=== PATIENT | female | born 1990 | race Caucasian/White ===

== ENCOUNTER 2019-05-11 12:36 | Emergency (ER) | payer MEDICAID ==
[~2019-05-11] VITALS: Ht 142.2 cm; Wt 53.1 kg
[~2019-05-11 12:36] MED LIST: PREN-385 PO
[2019-05-11 12:39] VITALS: BP 115/71
--- NOTE | 2019-05-11 12:44 | NUR ---
PT TAKEN TO ER BED 03
--- NOTE | 2019-05-11 12:50 | NUR ---
28 Y/O FEMALE PRESENTING WITH C/C OF XIPHOID PAIN 4/10 RADIATING TO THE BILAT BACK FLANK AREA 8/10 PRESSURE SENSATION. PER PT HX OF GALLBLADDER STONES IN 2007, NO HX OF SX. PT REPORTS BURNING SENSATION WHEN URINATING WITH URINE BEING DARK YELLOW. PER PT NKA. MEDICAL HX OF HYPERTHOYRIDISM, DOES NOT TAKE MEDICATIONS DUE TO MEDICAL COVERAGE. CARRIE LAST NIGHT TOLERATED WELL WITH SLIGHT NAUSEA. PER PT REPORTS SIMILAR SYMPTOMS OF GALLBLADDER STONES. SIDE RAIL X1.
--- NOTE | 2019-05-11 13:26 | NUR ---
Patient being evaluated by DR WONG at bedside.
--- NOTE | 2019-05-11 14:05 | NUR ---
ULTRASOUND AT BEDSIDE
[2019-05-11 14:27] LABS: BASOPHILS # (AUTO) 0.1 K/uL (0.00-0.22); BASOPHILS % (AUTO) 0.4 % (0.0-2.0); EOSINOPHILS % (AUTO) 0.2 % (0.0-4.0); HEMATOCRIT 36.8 % (36-48); HEMOGLOBIN 12.1 g/dL (12.0-16.0); LYMPHOCYTES % (AUTO) 7.4 % (20.5-51.1); MEAN CORPUSCULAR HEMOGLOBIN 29 pg (27-31); MEAN CORPUSCULAR HGB CONC 33 g/dL (33-37); MONOCYTES # (AUTO) 0.9 K/uL (0.8-1.0); MONOCYTES % (AUTO) 6.7 % (1.7-9.3); NEUTROPHILS # (AUTO) 11.8 K/uL (1.8-7.7); NEUTROPHILS % (AUTO) 85.3 % (42.2-75.2); PLATELET COUNT (AUTO) 212 K/uL (140-450); RED BLOOD CELL COUNT(AUTO) 4.14 MIL/uL (4.20-5.40); RED CELL DISTRIBUTION WIDTH 14.6 % (11.6-13.7); WHITE BLOOD COUNT (AUTO) 13.8 K/uL (4.8-10.8)
[2019-05-11 14:54] LABS: ANION GAP 14.4 (8-16); CARBON DIOXIDE 24.3 mmol/L (21-32); CREATININE 0.7 mg/dL (0.6-1.3); POTASSIUM 3.7 mmol/L (3.5-5.1)
[2019-05-11 14:59] LABS: ALBUMIN 3.7 g/dL (3.4-5.0); TOTAL BILIRUBIN 0.6 mg/dL (0.0-1.0)
--- NOTE | 2019-05-11 16:23 | NUR ---
PT ROUNDING ; PT SLEEPING
[2019-05-11 17:02] LABS: APPEARANCE,URINE HAZY (CLEAR); BILIRUBIN,URINE NEGATIVE (NEGATIVE); BLOOD, URINE 1+ (NEGATIVE); COLOR,URINE YELLOW (YELLOW); LEUKOCYTE ESTERASE ,URINE 1+ (NEGATIVE); NITRITE, URINE POSITIVE (NEGATIVE); PH,URINE 7.5 (5.0-9.0); UGLUCOSE NEGATIVE (NEGATIVE)
[2019-05-11] MEDS ORDERED: cefTRIAXone 1,000 MG VIAL ONE (17:29)
[2019-05-11 17:52] LABS: WBC,URINE >25 (MANY) /HPF (0-5)
[2019-05-11 18:10] VITALS: BP 118/68
--- NOTE | 2019-05-11 18:10 | NUR ---
Patient discharged with v/s stable. Written and verbal after care instructions given and explained. Patient alert, oriented and verbalized understanding of instructions. Ambulatory with steady gait. All questions addressed prior to discharge. ID band removed. Patient advised to follow up with PMD. Rx of ZOFRAN AND KEFLEX given. Patient educated on indication of medication including possible reaction and side effects. Opportunity to ask questions provided and answered.
== END 2019-05-11 18:10 | disposition home or self-care (01) ==
LOC: MED 12:36
DX: N39.0 Urinary tract infection, site not specified (principal); E05.90 Thyrotoxicosis, unspecified without thyrotoxic crisis or storm; Z79.899 Other long term (current) drug therapy
CPT/HCPCS: 36415; 76705; 80053; 81001; 81025; 83690; 85025; 87086; 87186; 96365; 99284; J0696; J7060; Q0092